=== PATIENT | female | born 1990 | race Caucasian/White ===

== ENCOUNTER 2024-08-29 11:36 | Emergency (ER) | payer OTHER, SELFPAY ==
--- OUTSIDE RECORDS SUMMARY | 2020-03-31 12:00 | XMS_ITS | Continuity of Care Document ---
Author Organization [facility] Address [address] [place] [address] Phone Care Team Providers Care Repairer Switchgear Name Role Phone Yasir KASHVijaya Unavailable Unavailable Allergies, Adverse Reactions, Alerts Substance Reaction Status Criticality No Known Allergies Active No Inform ation Medications Medication Instructions Dosage Effective Dates (start - stop) Status Comments No Drug Therapy Prescribed Problems Condition Type Effective Dates (start - stop) Clini rosendo Status Comments No Known Problems Procedures Procedure Date Nutrit Couns For Control Of Ross Dis Mar Resin Composite 3s; Posterior 0 Intraoral-periapical 1st Film 0 Bitewig-single Film Oral Hygiene Instruction Limited Oral Eval Panoramic Film Extract; Erupted Th/exposted Rt 020 Oral Hygiene Instruction OFFICE/OUTPATIENT VISIT, EST ROUTINE VENIPUNCTURE OFFICE/OUTPATIENT VISIT, EST SMEAR, WET MOUNT, SALINE/INK OFFICE/OUTPATIENT VISIT, [facility] SMEAR, WET MOUNT, SALINE/INK [facility] SPECIMEN HANDLING (GC/CHLAMYDIA) Jul OFFICE/OUTPATIENT VISIT, EST Azithromycin 250 mg [facility] SMEAR, WET MOUNT, SALINE/INK OFFICE/OUTPATIENT VISIT, NEW [facility] SPECIMEN HANDLING (GC/CHLAMYDIA) Feb SMEAR, WET MOUNT, SALINE/INK [facility] METRONIDAZOL 500 MG (14 TABLETS) Feb HIV-1 OFFICE/OUTPATIENT VISIT, EST OFFICE/OUTPATIENT VISIT, EST OFFICE/OUTPATIENT VISIT, EST EST OFFICE VISIT LEVEL 2 OFFICE/OUTPATIENT VISIT, EST EST OFFICE VISIT LEVEL 3 OFFICE/OUTPATIENT VISIT, EST OFFICE/OUTPATIENT VISIT, EST EST OFFICE VISIT LEVEL 3 OFFICE/OUTPATIENT VISIT, NEW NEW OFFICE VISIT LEVEL 3 URINALYSIS NONAUTO W/O SCOPE ROUTINE VENIPUNCTURE TB INTRADERMAL TEST OFFICE/OUTPATIENT VISIT, EST HEPB VACC PED/ADOL 3 DOSE IM TDAP VACCINE >7 IM TB INTRADERMAL TEST Advance Directives Directive Yes / No Effective Date File Name No Information Encounters Encounter Description Practice Location Reason(s) For Visit Diagnoses Date Provider Providers Copied on Encounter [facility], [address] [place] [address], [id number] , tel:[phone] Dental Clinic deepa (chief complaint) Encounter for screening for dental disorder 0 Yasir Lilly. [address] [place] [address], [id number], [place]. tel:[phone] [facility], [address] [place] [address], [id number] , [place] tel:[phone] Dental Clinic ER (chief complaint) Encounter for screening for dental disorders 0 Yasir Lilly. [address] [place] [address], [id number], [place]. tel:[phone] [facility], [address] [place] [address], [id number] , [place] tel: [phone] Dental Clinic dental limited (chief complaint) Encounter for screening for dental disorders Sep-2 202 0 Darryl SCHAFFER Shaun. [address] [place], [id number], [place]. tel:[phone] [facility], [address] [place], [place], [id number] , [place] tel: [phone] [facility] adipex #3 (chief complaint) Body mass index (BMI) 39.0-39.9, adultMorbid (severe) obesity due to excess calories Dec-0 5-201 7 Go Espino. [address] [place], [place], [id number], [place]. tel:[phone] [facility], [address] [place] [address], [id number] , tel: [phone] [facility] Body mass index (BMI) 39.0-39.9, adultMorbid (severe) obesity due to excess calories Nov-0 7-201 7 Go Espino. [address] [place], [place], [id number], [place]. tel:[phone] [facility], [address] [place] [address], [id number] , tel: [phone] [facility] Wt management (chief complaint) Body mass index (BMI) 39.0-39.9, adultMorbid (severe) obesity due to excess calories Oct-1 0-201 7 Go Espino. [address] [place], [place], [id number], [place]. [phone] OFFICE/OUTPA TIENT VISIT, EST [facility], [address] [place] [address], [id number] , [place] tel: [phone] [facility] review labs (chief complaint)a dipex (chief complaint) Obesity Fe- 1-201 5 Go Espino. [address] [place], [place], [id number], [place]. tel:[phone] [facility], [address] [place], [place], [id number] , [place] tel: [phone] [facility] lab draw (chief complaint) No Information b-0 - 5 Go Espino. [address] [place], [place], [id number], [place]. tel:[phone] OFFICE/OUTPA TIENT VISIT, [facility], [address] [place], [place], [id number] , [place] tel: [phone] [facility] adipex (chief complaint) Obesity 0 5 Go Espino. [address] [place], [place], [id number], [place]. tel:[phone] OFFICE/OUTPA TIENT VISIT, [facility], [address] [place], [place], [id number] , [place] tel: [phone] [facility] STI female (chief complaint) Trichomonal vulvovaginitisScr eening examination for venereal disease 0 4 Nicole Drew. [address] [place], [place], [id number], [place]. tel:[phone] OFFICE/OUTPA TIENT VISIT, [facility], [address] [place], [place], [id number] , [place] tel: [phone] [facility] No Information 3 Visci DO Bandar. [address] [place], [place], [id number], [place]. tel:[phone] [facility], [address] [place], [place], [id number] , [place] tel: [phone] [facility] Other nongonococcal urethritis, chlamydia trachomatis 3 Nicole Drew. [address] [place], [place], [id number], [place]. tel:[phone] OFFICE/OUTPA TIENT VISIT, [facility], [address] [place], [place], [id number] , [place] tel: [phone] [facility] STI female (chief complaint) Trichomonal vulvovaginitisScr eening examination for venereal disease 3 Nicole Drew. [address] [place], [place], [id number], [place]. tel:[phone] OFFICE/OUTPA TIENT VISIT, [facility], [address] [place], [place], [id number] , [place] tel: [phone] [facility] follow up (chief complaint) Elevated blood pressure reading without diagnosis of hypertensionObesi ty Jun- 3 Hemmer Kasandra. [address] [place], [place], [id number], [place]. OFFICE/OUTPA TIENT VISIT, [facility], [address] [place] [address], [id number] , [place] tel: [phone] [facility] weight management (chief complaint) Elevated blood pressure reading without diagnosis of hypertensionObesi ty 3 Hemmer Kasandra. [address] [place], [place], [id number], [place]. EST OFFICE VISIT LEVEL 2 [facility], [address] [place] [address], [id number] , [place] tel: [phone] [facility] weight loss therapy (chief complaint) Obesity 2 Hemmer Kasandra. [address] [place], [place], [id number], [place]. EST OFFICE VISIT LEVEL 3 [facility], [address] [place] [address], [id number] , [place] tel: [phone] [facility] weight loss (chief complaint) ObesityElevated blood pressure reading without diagnosis of hypertensionTobac co Abuse 2 Hemmer Kasandra. [address] [place], [place], [id number], [place]. OFFICE/OUTPA TIENT VISIT, [facility], [address] [place] [address], [id number] , [place] tel: [phone] [facility] lab follow up (chief complaint)E KG follow up (chief complaint) Abnormal weight gainElevated blood pressure reading without diagnosis of hypertension 2 Hemmer Kasandra. [address] [place], [place], [id number], [place]. OFFICE/OUTPA TIENT VISIT, [facility], [address] [place], [place], [id number] , [place] tel: [phone] [facility] Rapid Weight Gain (chief complaint) ObesityAbnormal weight gain 2 Hemkristan Slaughter. [address] [place], [place], [id number], [place]. [facility], [address] [place] [address], [id number] , [place] tel: [phone] [facility] No Information 9 Linda Hester. [address] [place], [place], [id number], [place]. tel:[phone] OFFICE/OUTPA TIENT VISIT, [facility], [address] [place], [place], [id number] , [place] tel: [phone] [facility] No Information 9 Visci DO Portillo. [address] [place], [place], [id number], [place]. tel:[phone] [facility], [address] [place] [address], [id number] , [place] tel: [phone] [facility] No Information 9 Viscconstantino Hester. [address] [place] [address], [id number], [place]. tel:[phone] Family History Family Member Type Diagnosis Age At Onset Mother Problem (finding) Alive and well Sister Problem (finding) seizure disorder Sister Problem (finding) Obesity Sister Problem (finding) hypertension Father Problem (finding) Alive and well Immunizations Vaccine Date Status Comments Influenza virus vaccine, injectable, quadrivalent, split virus, preservative free, 3 years or older Fluarix, Flulaval or Fluzone Quad refused Source: New Immun ization Record Payers Payer name Insurance type Covered republican ID Aisha stout(s) D Medicaid [facility] [id number] Medicaid [facility] [id number] Social History Type Description Quantity Date Captured Comments Alcohol Use Details beer & wine Caffeine Use Details coffee and energy drinks Tobacco Use Status Light cigarette smok er (1-9 cigs/day) Smoking Status Light tobacco smoker pt has seven tattoos Sex Female Sexual Orientation Straight or heterosexual Gender Identity Female Vital Signs Date / Time: Height Weight BMI Pulse Rate Blood Pressure Temperature Respiratory Rate Body Surface Area Head Circumference Head Circ. Percentile Wt./Aram. Percentile BMI percentile Pulse Ox Inhaled Ox 4:12 PM 67 /min 100/68 mm[Hg] 98.30 F Chief Complaint And Reason For Visit From encounter dated '03/31/2020 16:00'. deepa (chief complaint). Description: deepa Reason For Referral Reason For Referral No Information Plan Of Treatment Date Type Action Status Goal Influenza vaccine. Due on due Goal RLP. Due on due Goal Depression screening. Due on due Goal H&P. Due on due Goal CASHIER AND SALESPERSON exam. Due on due Goal Tdap. Due on due Goal PAP. Due on due Goal Tdap. Due on due Goal RLP. Due on due Goal PAP. Due on due Goal Depression screening. Due on due Goal CASHIER AND SALESPERSON exam. Due on due Goal H&P. Due on due Goal Influenza vaccine. Due on due Goal Depression screening. Due on due Goal CASHIER AND SALESPERSON exam. Due on due Goal Tdap. Due on due Goal PAP. Due on due Goal Influenza vaccine. Due on due Goal RLP. Due on due Goal H&P. Due on due Goal PAP. Due on due Goal H&P. Due on due Goal Tdap. Due on due Goal Urinalysis. Due on 12 due Goal RLP. Due on due Goal CASHIER AND SALESPERSON exam. Due on due Goal PPD (TST). Due on 9 due Goal Influenza vaccine. Due on due Goal Urinalysis. Due on 12 due Goal Influenza vaccine. Due on due Goal PPD (TST). Due on 9 due Goal RLP. Due on due Goal PAP. Due on due Goal H&P. Due on due Goal CASHIER AND SALESPERSON exam. Due on due Goal Tdap. Due on due Goal PAP. Due on due Goal H&P. Due on due Goal Urinalysis. Due on 12 due Goal PPD (TST). Due on 9 due Goal Influenza vaccine. Due on due Goal Tdap. Due on due Goal CASHIER AND SALESPERSON exam. Due on due Goal RLP. Due on due Goal H&P. Due on due Goal Tdap. Due on due Goal Urinalysis. Due on 12 due Goal Depression screening. Due on due Goal PAP. Due on due Goal CASHIER AND SALESPERSON exam. Due on due Goal PPD (TST). Due on 9 due Goal TD Vaccine. Due on 15 due Goal HPV (). Due on 5 due Goal H&P. Due on due Goal TD Vaccine. Due on 15 due Goal Depression screening. Due on due Goal Urinalysis. Due on 12 due Goal HPV (1st). Due on 5 due Goal PAP. Due on due Goal CASHIER AND SALESPERSON exam. Due on due Goal PPD (TST). Due on 9 due Goal Tdap. Due on due Goal Urinalysis. Due on 12 due Goal HPV (1st). Due on 5 due Goal TD Vaccine. Due on 15 due Goal CASHIER AND SALESPERSON exam. Due on due Goal H&P. Due on due Goal PAP. Due on due Goal PPD (TST). Due on 9 due Goal Depression screening. Due on due Goal Tdap. Due on due Goal Tobacco cessation counseling completed Goal Tobacco cessation counseling completed Goal Tobacco cessation counseling completed Goal Tobacco cessation counseling completed History Of Present Illness Encounter Date Complaint History Of Prese nt Illness deepa deepa ER dental limited dental limited, pt having pain in wisdom teeth adipex #3 Pt here for rx # 3 today, was off last month but did work a lot and was unable to exercise as much as she usually does. Preeti Wt management Pt here today fo r wt management. is not exercising or watching diet and just had her daughter a few months ago. Had 1 rx of adipex back in 2014 but no f/u. Preeti review labs adipex lab draw Client here to l abs obtained. Obtained from left antecubital on first attempt w/o difficulty. Raciel Urbina adipex Client desires A dipex. Raciel Urbina Functional Status Date Functional Assessmen t No Information Medications Administered Medication Instructions Dosage Effective Dates (start - stop) Status Comments No Drug Therapy Prescribed Instructions Date Instruction Additional Infor mation No Information Assessments Type Assessment Date assessment Encounter for screening for dent al disorder Patient Care Teams Name Effective Dates (start - stop) Status Members No Information
[2024-08-29 11:45] VITALS: BP 143/96; PULSE 100; TEMP 37; O2SAT 99; BMI 40.4
--- OUTSIDE RECORDS SUMMARY | 2024-08-29 11:45 | XMS_ITS | Patient Health Record ---
Author Organization [facility] es Address [address] [place] [address] Care Team Providers Care Filleter Name Role Phone Catherine Patel Primary Care Provider [phone] Stephan Irina Unavailable [phone] Coco Hernandez Unavailable [phone] Allergies No Known Allergies Reason For Referral No Information Medications Medication SIG (Take, Route, Frequency, Duration) Notes Start Date End Date Status Bactrim DS 800-160 MG 1 tablet Orally Tw ice a day for 10 day(s) Not-Taking Pseudoephedrine HCl 30 MG 1 tablet Orall y Q12 hour for 5 days 01/14/2021 Active Social History Tobacco Use: Social History Observation Description Date Details (start date - stop date) Never Smoker NA - NA Tobacco Screen: Question Answer Notes Are you a: never smoker Sexual Hx: Question Answer Notes Had sex in the last 12 months (vaginal, oral, or anal)? Yes with Men only Use protection? No Prevention Strategies discussed: Other Have you ever had an STD? Yes Other? Yes LMP: before Alcohol Screening: Question Answer Notes Did you have a drink contain ing alcohol in the past year? Yes How often did you have a dri nk containing alcohol in the past year? Monthly or less (1 point) How many drinks did you have on a typical day when you were drinking in the past year? 1 or 2 (0 points) How often did you have six o r more drinks on one occasion in the past year? Less than monthly (1 point) Points 2 Interpretation Negative Depression Screening (PHQ-2): Question Answer Notes Little interest or pleasure in doing things Yes Feeling down depressed or hopeless Yes Depression Screening (PHQ-9): Question Answer Notes Little interest or pleasure in doing things Elaine ral days Feeling down, depressed, or hopeless Not at all Trouble falling or staying asleep, or sleeping t oo much Nearly every day Feeling tired or having little energy Nearly jeannie ry day Poor appetite or overeating Nearly every day Feeling bad about yourself-o r that you are a failure or have let yourself or your family down Not at all Trouble concentrating on thi ngs, such as reading the newspaper or watching television Not at all Moving or speaking so slowly that other people could have noticed. Or the opposite being so fidgety or restless that you have been moving around a lot more than usual Several days Thoughts that you would be b lidya off , or of hurting yourself in some way Not at all Total Score 11 Intepretation Moderate Depression Problems Problem Type SNOMED Code ICD Code Onset Dates Problem Status W/U Status Risk Notes Problem 24156434 Post depression (F53) Active confirmed Problem [id number] Plantar fasciitis, bilateral (M72.2) Active confirmed Problem 820322174 Obesity (BMI 35.0-39.9 without comorbidity) (E66.9) Active confirmed Encounters Encounter Location Date Provider Diagnosis [facility] [place] Services [address] [place] [address] 12/26/2023 Coco Hernandez Encounter for dental examination and cleaning with abnormal findings Z01.21 ; Other dental procedure status Z98.818 ; Disturbances in tooth eruption K00.6 ; Acute gingivitis, plaque induced K05.00 and Dental caries on pit and fissure surface penetrating into dentin K02.52 [facility] [place] [address] [place] [address] 12/28/2023 Irina Rothman Acute gingivitis, plaque induced K05.00 [facility] [place] [address] [place] [address] 06/27/2024 Irina Rothman Acute gingivitis, plaque induced K05.00 [facility] [place] [address] [place] [address] 12/27/2023 Coco Hernandez Dental caries on pit and fissure surface penetrating into dentin K02.52 Assessments Encounter Date Diagnosis (ICD Code) Assessment Notes Treatment Notes Treatment Clinical Notes Section Notes 12/26/2023 Encounter for dental examination and cleaning with abnormal findings (ICD-10 - Z01.21) 12/27/2023 Dental caries on pit and fissure surface penetrating into dentin (ICD-10 - K02.52) 12/28/2023 Acute gingivitis, plaque induced (ICD-10 - K05.00) 06/27/2024 Acute gingivitis, plaque induced (ICD-10 - K05.00) 12/26/2023 Other dental procedure status (ICD-10 - Z98.818) 12/26/2023 Disturbances in tooth eruption (ICD-10 - K00.6) 12/26/2023 Acute gingivitis, plaque induced (ICD-10 - K05.00) 12/26/2023 Dental caries on pit and fissure surface penetrating into dentin (ICD-10 - K02.52) Plan Of Treatment Next Appt Details Provider Name:Irina Rothman , 01/07/2025 03:20:00 PM, [address], [place], [address], Insurance Providers Payer Name Payer Address Payer Phone Subscriber Number Group Number Insured Name Patient Relationship to Insured Coverage Start Date Coverage End Date MEDICAL [facility] HEMAL [address] [place] [address] [id number] SREEDHAR PULIDO Self - patient is the insured [facility]. [address] [place] [address] [id number] SREEDHAR PULIDO Self - patient is the insured 9 [id number] D [facility] [address] [place] [address] [id number] SREEDHAR PULIDO Self - patient is the insured 9 [facility] [address] [place] [address] [id number] SREEDHAR PULIDO Self - patient is the insured 4 Medical (General) History Hospitalization History Reason Date(Month/Year) Child
--- OUTSIDE RECORDS SUMMARY | 2024-08-29 11:45 | XMS_ITS | Encounter Summary ---
Author Organization [facility] Address [address] [place] [address] Care Team Providers Care Brewery Technician Name Role Phone Unallocated, Noms Provider Primary Care Provi christie Emeli Somers POULTRY GRADER Unavailable [phone] Ethel Guillen DO Unavailable [phone] Luna Smyth POULTRY GRADER Unavailable Blake Andrade DO Primary Care Provider [phone] Criselda Hoff DO Unavailable [phone] Encounter Details Date Type Department Care Team (Late st Contact Info) Description 03/21/2023 Abstract [facility] [address] [facility] [address] [place] [id number] Lizzie Godinez, DO [address] [facility] [address] [place] [address] Social History Tobacco Use Types Packs/Day Years Used Date Smoking Tobacco: Former Cigarettes 0.5 5 1 04/10/2016 - 02/08/2022 Smokeless Tobacco: Never Alcohol Use Standard Drinks/Week Comments Yes 0 (1 standard drink = 0.6 oz pure alcohol) not with , Caffeine intake: 1-2 cups per day coffee AUDIT-C Answer Date Recorded Q1: How often do you have a drink containing alc ohol? 2-4 times a month 02/09/2023 Q2: How many drinks containi ng alcohol do you have on a typical day when you are drinking? 1 or 2 02/09/2023 Q3: How often do you have si x or more drinks on one occasion? Never 02/09/2023 Education Answer Date Recorded What is the highest level of school you have completed or the highest degree you have received? 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 No / Unsure 03/16/2023 8:44 AM EST documented as of this encounter Plan of Treatment Upcoming Encounters Date Type Department Care Team (Late st Contact Info) Description 11/15/2024 11:30 AM EDT Office Visit [facility] [address] [place] [address] Lizzie Godinez E, DO [address] [place] [address] 06/11/2025 3:40 PM EST Office Visit [facility] [address] [place] [address] Luna Smyth, POULTRY GRADER [address] [place], [place] [id number] documented as of this encounter Visit Diagnoses Not on filedocumented in this encounter Care Teams Brewery Technician Relationship Specialty Start Date End Date Unallocated, [facility] [place], [address] [place] [address] PCP - General 09/19/22 05/18/23 Emeli Somers NP [address] [place] [address] PCP - Medical [facility] [employer] 09/08/22 04/20/23 Joe-Ethel Zelaya DO [address] [place] [address] PCP - [facility] 10/08/22 Blake Andrade DO [address] [place] [address] PCP - General Family Medicine 05/19/23 Criselda Hoff DO [address] [place] [address] PCP - Medical [employer] 04/21/23 04/09/99 Luna Smyth NP [address] [place] [address] Nurse Practitioner Family Medicine 05/19/23 documented as of this encounter
--- OUTSIDE RECORDS SUMMARY | 2024-08-29 11:45 | XMS_ITS | Clinical Summary ---
Author Organization [facility] Address [address] [place] [address] Care Team Providers Care Electrician Elevator Maintenance Name Role Phone EmeritaLuna monroe Suresh PHOTOGRAPHIC ENGINEER Unavailable Blake Andrade DO Primary Care Provider [phone] Criselda Hoff DO Unavailable [phone] Allergies No known active allergies Medications No known medications Active Problems Problem Noted Date Diagnosed Date Status post bilateral salpingectomy 05/19/2023 Resolved Problems Problem Noted Date Diagnosed Date Resolved Date Gestational diabetes mellitu s (GDM) in third trimester 02/08/2023 05/19/2023 Assessment & Plan (02/08/2023 8:01 PM EDT): Discussed risks and benefits of gestational diabetes. Discussed lifestyle modifcations at length. Given meter and instructed on its use. BG goals of fasting < 95, 1 hr < 140, and 2 hr < 120. Pt is to send me readings in one week for review. Pt is to call with any problems. Care plan was discussed and a copy of this was given to the patient along with current A1c, blood pressure, diabetes medications. Discussed risk of developing type 2 diabetes in the future and the recommendation to get a 2 hr GTT 6 weeks after delivery. Will follow up as needed. Her fasting readings are a little higher than I would like but I would like to give her a week to make dietary changes to see if this helps before putting her on medications. Encounters Date Type Department Care Team Description 06/18/2024 Telephone [facility] [address] [facility] [address] [place] [phone] Tara Soriano MA Results 06/10/2024 3:40 PM EST Office Visit [facility] [address] [place] [phone] Luna Smyth NP Well adult exam (Primary Dx); Impaired fasting glucose; Family history of hypothyroidism 06/10/2024 Bamboo flowsheet [facility] [address] [place] [phone] Luna Smyth NP 06/10/2024 Travel from Last 3 Months Immunizations Immunization Administration Dates Next Due DTP 06/16/1992,01/17/1991,1990 DTaP, Unspecified 08/31/1995,01/06/1993 Hep B, Adolescent or Pediatric 01/21/2009,2000 HiB, unspecified 06/16/1992,01/17/1991, 1 MMR 08/31/1995,06/16/1992 OPV 08/31/1995,06/16/1992,01/17/1991 ,1990 Tdap 03/22/2023,01/21/2009 Family History Medical History Relation Name Comments No Known Problems Daughter Cancer Father Bandar avila Diabetes Father Bandar avila Hypertension Father Bandar avila Stroke Father Bandar avila Lung cancer Maternal Grandfather Breast cancer Maternal Grandmother Val renae Cancer Maternal Grandmother Val renae Rheum arthritis Mother Mi russell Thyroid disease Mother Mi russell Asthma Nephew Cancer Paternal Grandfather No Known Problems Paternal Grandmother No Known Problems Sister Relation Name Status Comments Daughter 1, healthy Father Bandar vaila Alive Maternal Grandfather Maternal Grandmother Val renae Mother Mi russell Alive Nephew Paternal Grandfather Paternal Grandmother Sister 2, healthy Social History Tobacco Use Types Packs/Day Years Used Date Smoking Tobacco: Former Cigarettes 0.5 8.1 0 01/07/2014 - 02/08/2022 Smokeless Tobacco: Never Tobacco Cessation:Counseling Given: Yes Alcohol Use Standard Drinks/Week Comments Yes 0 (1 standard drink = 0.6 oz pure alcohol) Caffeine intake: 1-2 cups per day coffee Humiliation, Afraid, Rape, and Kick questionnair e Answer Date Recorded Within the last year, have y ou been afraid of your partner or ex-partner? No 05/16/2023 Within the last year, have y ou been humiliated or emotionally abused in other ways by your partner or ex-partner? No Within the last year, have y ou been kicked, hit, slapped, or otherwise physically hurt by your partner or ex-partner? No 05/16/2023 Within the last year, have y ou been raped or forced to have any kind of sexual activity by your partner or ex-partner? No 05/16/2023 Social Connection and Isolation Panel [NHANES] A nswer Date Recorded In a typical week, how many times do you talk on the phone with family, friends, or neighbors? Three times a week 05/16/19 How often do you get togethe r with friends or relatives? Once a week 05/16/2023 How often do you attend chur or roman catholic services? Never 05/16/2023 Do you belong to any clubs o r organizations such as oriental orthodox groups, unions, fraternal or athletic groups, or school groups? No 05/16/2023 How often do you attend meet ings of the clubs or organizations you belong to? Never 05/16/2023 Are you , , di vorced, , never , or living with a partner? Living with partner 05/16/2023 AUDIT-C Answer Date Recorded Q1: How often do you have a drink containing alc ohol? 2-4 times a month 05/16/2023 Q2: How many drinks containi ng alcohol do you have on a typical day when you are drinking? 5 or 6 05/16/2023 Q3: How often do you have si x or more drinks on one occasion? Monthly 05/16/2023 Overall Financial Resource Strain (CARDIA) Answe r Date Recorded How hard is it for you to pa y for the very basics like food, housing, medical care, and heating? Somewhat hard 05/16/2023 PHQ-2 Answer Date Recorded Patient Health Questionnaire-2 Score 0 06/10/2024 [facility] Occupational Stress Questionnaire Answer Date Recorded Do you feel stress - tense, restless, nervous, or anxious, or unable to sleep at night because your mind is troubled all the time - these days? Not at all 05/16/2023 Exercise Vital Sign Answer Date Recorde d On average, how many days pe r week do you engage in moderate to strenuous exercise (like a brisk walk)? 7 days 05/16/2023 On average, how many minutes do you engage in exercise at this level? 60 min 05/16/2023 Hunger Vital Sign Answer Date Recorded Within the past 12 months, y ou worried that your food would run out before you got the money to buy more. Never true 05/16/19 24 Within the past 12 months, t he food you bought just didn't last and you didn't have money to get more. Never true 05/16/2023 PRAPARE - Transportation Answer Date Re corded In the past 12 months, has l ack of transportation kept you from medical appointments or from getting medications? No 09/2023 In the past 12 months, has l ack of transportation kept you from meetings, work, or from getting things needed for daily living? No 05/16/2023 Housing Stability Vital Sign Answer Stefan e Recorded In the last 12 months, was t here a time when you were not able to pay the mortgage or rent on time? No 05/16/2023 In the last 12 months, how many places have you lived? 1 05/16/2023 In the last 12 months, was t here a time when you did not have a steady place to sleep or slept in a mcfp (including now)? No 05/16/2023 Education Answer Date Recorded What is the highest level of school you have completed or the highest degree you have received? 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 Not on file Not on file Last Filed Vital Signs Vital Sign Reading Time Taken Comments Blood Pressure 124/76 06/10/2024 3:45 PM EST Pulse 68 06/10/2024 3:45 PM EST Temperature 36.9 C (98.4 F) 06/10/2024 3:45 PM EST Respiratory Rate - - Oxygen Saturation 97% 06/10/2024 3:45 PM EST Inhaled Oxygen Concentration - - Weight 110 kg (243 lb) 06/10/2024 3:45 PM EST Height 170.2 cm (5' 7 ) 06/10/2024 3:45 PM EST Body Mass Index 38.06 06/10/2024 3:45 PM EST Plan of Treatment Upcoming Encounters Date Type Department Care Team (Late st Contact Info) Description 11/15/2024 11:30 AM EDT Office Visit [facility] OB [address] [place] [address] Lizzie Godinez, DO [address] [place] [address] 06/11/2025 3:40 PM EST Office Visit [facility] [address] [place] [phone] Luna Smyth, PHOTOGRAPHIC ENGINEER [address] [place] [address] Health Maintenance Due Date Last Done Comments Pap Smear 2011 Influenza Vaccine (Season Ended) 2024 Cervical Cancer Screening 10/24/2028 HPV/Cotest 10/24/2028 10/25/2023, 10/08, 04/01/2021, Additional history exists Procedures Procedure Name Priority Date/Time Associated Diagnosis Comments HEMOGLOBIN A1C WITH EAG Routine 06/15/2024 7:25 AM EST Well adult exam Impaired fasting glucose Family history of hypothyroidism LIPID PANEL Routine 06/15/2024 7:25 AM EST Well adult exam Impaired fasting glucose Family history of hypothyroidism COMPREHENSIVE METABOLIC PANEL Routine 06/15/2024 7:25 AM EST Well adult exam Impaired fasting glucose Family history of hypothyroidism T4, FREE Routine 06/15/2024 7:25 AM EST Well adult exam Impaired fasting glucose Family history of hypothyroidism TSH Routine 06/15/2024 7:25 AM EST Well adult exam Impaired fasting glucose Family history of hypothyroidism HEMOGRAM [place] Routine 06/15/2024 7:25 AM EST Well adult exam Impaired fasting glucose Family history of hypothyroidism THINPREP IMAGING PAP W/REFL HPV MRNA E6/E7 Routine 10/25/2023 2:25 PM EDT Screening for malignant neoplasm of cervix from Last 3 Months or Most Recently Relevant to Health Maintenance Results * HEMOGRAM CBC WITHOUT DIFF [place] (06/15/2024 7:25 AM EST) WBC 4.5 3.8 - 11.6 10*3/uL 06/15/2024 9:20 AM [facility] RBC 4.52 3.60 - 5.00 10*6/uL 06/15/2024 9:20 AM [facility] HEMOGLOBIN 13.4 11.8 - 15.4 g/dL 06/15/2024 9:20 AM [facility] HEMATOCRIT 38.8 34.0 - 46.4 % 06/15/2024 9:20 AM [facility] MCV 85.8 80 - 100 fL 06/15/2024 9:20 AM [facility] MCH 29.5 24.7 - 34.3 pg 06/15/2024 9:20 AM [facility] MCHC 34.4 32.0 - 35.0 g/dL 06/15/2024 9:20 AM [facility] RED CELL DISTRIBUTION WIDTH, RDW 13.6 11.9 - 15.3 % 06/15/2024 9:20 AM [facility] PLATELET COUNT 218 150 - 450 10*3/uL 06/15/2024 9:20 AM [facility] MEAN PLATELET VOLUME, MPV 9.1 6.3 - 10.7 fL 06/15/2024 9:20 AM [facility] Blood (Blood) 06/15/2024 7:2 5 AM EST 06/15/2024 7:25 AM EST us Luna Smyth PHOTOGRAPHIC ENGINEER LAB BLOOD ORDERABLES Final Resul t Performing Organization Address [facility] Co de Phone Number [address] [place] [address], [facility] [address] [place] [address] * (ABNORMAL) Hemoglobin a1c with eag (06/15/2024 7:25 AM EST) HEMOGLOBIN A1C 5.7(H) 4.3 - 5.6 % 06/15/2024 11:43 AM EST [facility] Comment: Increased risk for diabetes: 5.7 - 6.4 diabetes: >6.4 glycemic control for adults with diabetes: <7.0 ESTIMATED AVERAGE GLUCOSE 117 mg/dL 06/15/2024 11:43 AM EST [facility] Blood (Blood) 06/15/2024 7:2 5 AM EST 06/15/2024 7:25 AM EST us Luna Smyth NP LAB BLOOD ORDERABLES Final Resul t Performing Organization Address [facility] Co de Phone Number [address] [place] [address], [facility] [address] [place] [address] * TSH (06/15/2024 7:25 AM EST) THYROID STIMULATING HORMONE 2.01 0.45 - 5.33 u[iU]/mL 06/15/2024 9:54 AM EST [facility] Other Topography unknown / Unknown 06/15/2024 7:25 AM EST 06/15/2024 7:25 AM EST Luna Smyth PHOTOGRAPHIC ENGINEER LAB BLOOD ORDERABLES Final Resul t Performing Organization Address City/[facility] Co de Phone Number [address] [address], [address] [address] * T4, free (06/15/2024 7:25 AM EST) FREE T4 (FREE THYROXINE) 0.77 0.61 - 1.12 ng/dL 06/15/2024 9:56 AM [facility] Other Topography unknown / Unknown 06/15/2024 7:25 AM EST 06/15/2024 7:25 AM EST Luna Smyth PHOTOGRAPHIC ENGINEER LAB BLOOD ORDERABLES Final Resul t [facility] [address] [place] [address], [facility] [address] [place] [id number] * (ABNORMAL) Lipid panel (06/15/2024 7:25 AM EST) CHOLESTEROL 173 140 - 200 mg/dL 06/15/2024 9:38 AM [facility] Comment: Chol less than 200 mg/dl low risk Chol 201-239 mg/dl borderline risk Chol 240 mg/dl and greater high risk HDL CHOLESTEROL 46 23 - 92 mg/dL 06/15/2024 9:38 AM [facility] Comment: HDL CHOL ATP-III CLASSIFICATION Cardiovascular Risk HDL > or equal to 60 mg/dL LOW HDL < 40 mg/dL HIGH TRIGLYCERIDE W/REFLEX 122 0 - 149 mg/dL 06/15/2024 9:38 AM [facility] Comment: TRIG ATP III CLASSIFICATION TRIG less than 150 mg/dL Normal TRIG 150-199 mg/dL Borderline high TRIG 200-500 mg/dL High TRIG greater than 500 mg/dL Very high Standard traceable to the Center for Disease Conrtrol and Prevention (CDC) test method. LDL CHOLESTEROL,CALCULA PANTERA 103(H) 0 - 100 mg/dL 06/15/2024 9:38 AM [facility] Comment: LDL ATP III CLASSIFICATION LDL less than 100 mg/dL Optimal LDL 100-129 mg/dL Near or above optimal LDL 130-159 mg/dL Borderline high LDL 160-189 mg/dL High LDL greater than 189 mg/dL Very high VLDL CHOLESTEROL 24 mg/dL 06/16/19 9:38 AM [facility] CHOL/HDL RATIO 3.8 <5.0 06/15/2024 9:38 AM [facility] Other Topography unknown / Unknown 06/15/2024 7:25 AM EST 06/15/2024 7:25 AM EST us Luna Smyth NP LAB BLOOD ORDERABLES Final Resul t [facility] [address] [place] [address], [facility] [address] [place] [address] * (ABNORMAL) Comprehensive metabolic panel (06/15/2024 7:25 AM EST) Glucose 105(H) 70 - 100 mg/dL 06/15/2024 9:38 AM [facility] Comment: Random Glucose Reference Range is dependent on time and content of last meal. Glucose of more than 200 mg/dL in a nonstressed, ambulatory subject supports the diagnosis of Diabetes Mellitus. ADA recommended reference range BUN 20 7 - 25 mg/dL 06/15/2024 9:38 AM [facility] CREATININE 0.73 0.60 - 1.20 mg/dL 06/15/2024 9:38 AM [facility] ESTIMATED GFR >60.0 mL/Min 06/15/2024 9:38 AM [facility] Sodium 138 136 - 145 mmol/L 06/15/2024 9:38 AM [facility] Potassium, Bld 4.5 3.5 - 5.1 mmol/L 06/15/2024 9:38 AM [facility] Chloride 106 98 - 107 mmol/L 06/15/2024 9:38 AM [facility] Carbon Dioxide 25.8 21.0 - 31.0 mmol/L 06/15/2024 9:38 AM [facility] Anion Gap 10.7 6.0 - 15.0 meq/L 06/15/2024 9:38 AM [facility] Calcium 9.0 8.6 - 10.3 mg/dL 06/15/2024 9:38 AM [facility] TOTAL PROTEIN 7.0 6.4 - 8.9 g/dL 06/15/2024 9:38 AM [facility] ALBUMIN LEVEL 4.3 3.5 - 5.7 g/dL 06/15/2024 9:38 AM [facility] GLOBULIN 2.7 g/dL 06/15/2024 9:38 AM [facility] ALBUMIN/GLOBULIN RATIO 1.6 06/15/2024 9:38 AM [facility] BILIRUBIN,TOTAL 0.6 0.3 - 1.0 mg/dL 06/15/2024 9:38 AM [facility] ASPARTATE AMINO TRANSFERASE 12(L) 13 - 39 U/L 06/15/2024 9:38 AM [facility] ALANINE AMINOTRANSFERASE 6(L) 7 - 52 U/L 06/15/2024 9:38 AM [facility] ALKALINE PHOSPHATASE 78 34 - 104 U/L 06/15/2024 9:38 AM [facility] Other Topography unknown / Unknown 06/15/2024 7:25 AM EST 06/15/2024 7:25 AM EST us Luna Smyth PHOTOGRAPHIC ENGINEER LAB BLOOD ORDERABLES Final Resul t Performing Organization Address City/State/[facility] Co de Phone Number [facility] [address] [place] [address], [facility] [address] [place] [address] * THINPREP IMAGING PAP W/REFL HPV MRNA E6/E7 (10/25/2023 2:25 PM EDT) CLINICAL INFORMATION [facility] Comment:APOHR,APOHRNG LMP [facility] Comment:NONE GIVEN PREV. PAP [facility] Comment:NONE GIVEN PREV. BX [facility] Comment:NONE GIVEN SOURCE [facility] Comment:Cervix STATEMENT OF ADEQUACY [facility] Comment: Satisfactory for evaluation. Endocervical/transformation zone component present. INTERPRETATION/RESUL T [facility] Comment: Cytology Results: Negative for intraepithelial lesion or malignancy. COMMENT [facility] Comment: This Pap test has been evaluated with computer assisted technology. POLISHING MACHINE TENDER [facility] Comment: LXT, CT(ASCP) CT screening location: [facility], [address] [place] [address], [place] [address]. (ALWAYS MESSAGE) [facility] Comment: EXPLANATORY NOTE: The Pap is a screening test for cervical cancer. It is not a diagnostic test and is subject to false negative and false positive results. It is most reliable when a satisfactory sample, regularly obtained, is submitted with relevant clinical findings and history, and when the Pap result is evaluated along with historic and current clinical information. Swab Cervix uteri structure / Unknown 10/25/2023 2:25 PM EDT 10/26/2023 3:26 AM EDT Narrative Resulting Agency Comment Performing Organization Information Site ID: [id number] Name: [facility] Address: [address] [place] [address] Director: Chai Silva MD Lizzie Godinez DO LAB CYTOLOGY ORDERABLES Fin al Result [facility] from Last 3 Months or Most Recently Relevant to Health Maintenance Insurance [employer] Care Teams Electrician Elevator Maintenance Relationship Specialty Start Date End Date Blake Andrade DO [address] [place] [address] PCP - General Family Medicine 05/19/23 Criselda Hoff DO [address] [place] [address] PCP - Medical [employer] 04/21/23 04/09/99 Luna Smyth NP [address] [facility] [address] [place] [id number] Nurse Practitioner Family Medicine 05/19/23
--- OUTSIDE RECORDS SUMMARY | 2024-08-29 11:45 | XMS_ITS | Clinical Summary ---
Author Organization [facility] Address [address] [place] [address] Care Team Providers Care Night Coordinator Name Role Phone Unavailable Primary Care Provider Unavailabl e Medications No known medications Active Problems Problem Noted Date Diagnosed Date BMI 36.0-36.9,adult 09/12/2016 Tobacco smoking complicating in third trimester 09/12/2016 Social History Tobacco Use Types Packs/Day Years Used Date Smoking Tobacco: Never Assessed Comments Unknown Sex and Gender Information Value Date Recorded Sex Assigned at Not on file Legal Sex Female 2:03 PM EDT Gender Identity Not on file Sexual Orientation Not on file Last Filed Vital Signs Vital Sign Reading Time Taken Comments Blood Pressure - - Pulse - - Temperature - - Respiratory Rate - - Oxygen Saturation - - Inhaled Oxygen Concentration - - Weight 111.3 kg (245 lb 6.4 oz) 10/31/2016 2:05 PM EDT Height 170.2 cm (5' 7 ) 10/31/2016 2:05 PM EDT Body Mass Index 38.44 10/31/2016 2:05 PM EDT Plan of Treatment Health Maintenance Due Date Last Done Comments Anxiety Screening 2008 Depression Screening 2008 HIV Screening 2008 Hepatitis C Screening 2008 DTaP,Tdap,Td Vaccine (1 - Tdap) 2009 Hepatitis B Vaccine (1 of 3 - 19+ 3-dose series) 05/18 Cervical Cancer Screening 2011 Covid-19 Vaccine ( - 2023- season) 2023 Influenza Vaccine (Season Ended) 2024 Insurance BLUE CARD PPO OOS Member Subscriber Plan / Payer (Ef fective 2015-Present) Name:Marcelo Faustis Relation to Subscriber:Self Name:Ayo Faust Payer ID:[id number] (NAIC) Type:[facility] Address: [address] MEDICAID
--- OUTSIDE RECORDS SUMMARY | 2024-08-29 11:45 | XMS_ITS | Encounter Summary ---
Author Organization [facility] Address [address] [place] [address] Care Team Providers Care Kitchen Food Assembler Name Role Phone Unallocated, [facility] Provider Primary Care Provi chrisite Emeli Somers PERSONNEL CONSULTANT Unavailable Ethel Guillen DO Unavailable [phone] Luna Smyth PERSONNEL CONSULTANT Unavailable Blake Andrade DO Primary Care Provider Criselda Hoff DO Unavailable [phone] Encounter Details Date Type Department Care Team (Late st Contact Info) Description 03/21/2023 Abstract [facility] [address] [facility] [address] [place] [phone] Lizzie Godinez, DO [address] [facility] [address] [place] [address] Social History Tobacco Use Types [...] 11/15/2024 11:30 AM EDT Office Visit [facility] OB [address] [place] [address] Lizzie Godinez E, DO [address] [place] [address] 06/11/2025 3:40 PM EST Office Visit [facility] FM [address] [place] [address] Luna Smyth, PERSONNEL CONSULTANT [address] [place], [place] [phone] documented as of this encounter Visit Diagnoses Not on filedocumented in this encounter Care Teams Kitchen Food Assembler Relationship Specialty Start Date End Date Unallocated, [facility] [place], [address] [place] [address] PCP - General 09/19/22 05/18/23 Emeli Somers NP [address] [place] [address] PCP - Medical [place] [employer] 09/08/22 04/20/23 Joe-Ethel Zelaya DO [address] [place] [address] PCP - [facility] 10/08/22 Blake Andrade DO [address] [place] [address] PCP - General Family Medicine 05/19/23 Criselda Hoff DO [address] [place] [address] PCP - Medical [place] [employer] 04/21/23 04/09/99 Luna Smyth NP [address] [place] [address] Nurse Practitioner Family Medicine 05/19/23 documented as of this encounter
--- OUTSIDE RECORDS SUMMARY | 2024-08-29 11:45 | XMS_ITS | Encounter Summary ---
Author Organization [facility] Address [address] [place] [address] Care Team Providers Care Teacher Aide Name Role Phone Unallocated, Noms Provider Primary Care Provi christie Emeli Somers [employer] Unavailable [phone] Ethel Guillen DO Unavailable [phone] Luna Smyth [employer] Unavailable Blake Andrade DO Primary Care Provider Criselda Hoff DO Unavailable [phone] Encounter Details Date Type Department Care Team (Late st Contact Info) Description 10/17/2022 Abstract [facility] [address] [facility] [address] [place] [id number] Lizzie Godinez, DO [address] [facility] [address] [place] [address] Social History Tobacco Use Types Packs/Day Years Used Date Smoking Tobacco: Former Cigarettes 0.5 5 1 04/10/2016 - 02/08/2022 Smokeless Tobacco: Never Tobacco Cessation:Counseling Given: Not Answered Alcohol Use Standard Drinks/Week Comments Yes 0 (1 standard drink = 0.6 oz pure alcohol) not with , Caffeine intake: 1-2 cups per day coffee Education Answer Date Recorded What is the [...] suspected to have Coronavirus/COVID-19? No / Unsure 10/18/2022 10:44 AM EDT documented as of this encounter Plan of Treatment Upcoming Encounters Date Type Department Care Team (Late st Contact Info) Description 11/15/2024 11:30 AM EDT Office Visit [facility] [address] [place] [address] Lizzie Godinez, DO [address] [place] [address] 06/11/2025 3:40 PM EST Office Visit [facility] [address] [place] [address] Luna Smyth, [employer] [address] [place] [address] documented as of this encounter Visit Diagnoses Not on filedocumented in this encounter Care Teams Teacher Aide Relationship Specialty Start Date End Date Unallocated, Noms Provider, [address] [facility] [place] [address] PCP - General 09/19/22 05/18/23 Emeli Somers NP [address] [place] [address] PCP - Medical [employer] 09/08/22 04/20/23 Ethel Guillen DO [address] [place] [address] PCP - [facility] 10/08/22 Blake Andrade, DO [address] [place] [address] PCP - General Family Medicine 05/19/23 Criselda Hoff DO [address] [place] [address] PCP - Medical [employer] 04/21/23 04/09/99 Luna Smyth NP [address] [place] [address] Nurse Practitioner Family Medicine 05/19/23 documented as of this encounter
--- NOTE | 2024-08-29 11:51 | US_ITS ---
The [address] [address] Patient Name: SREEDHAR JOSEPH MRN: [id number] date: 1990 Sex: F Assigned Patient Location: ED.MAIN Current Patient Location: ED.MAIN Accession/Order Number: [id number] Exam Date: 08/29/2024 12:34 Report Date: 08/29/2024 12:36 At the request of: HUNTER ROBERTS MD Procedure: US right upper quadrant LIMITED RIGHT UPPER QUADRANT ABDOMINAL ULTRASOUND CLINICAL HISTORY: Right upper quadrant pain for the past 2 weeks COMPARISON: None The gallbladder is physiologically distended without shadowing calculi, wall thickening or pericholecystic fluid. No intra- or extrahepatic biliary dilatation is evident. The common duct measures 4 - 5 mm. No intrahepatic masses were imaged. There is appropriate hepatopetal flow within the main portal vein. The pancreas shows no significant sonographic abnormality. Cursory evaluation of the right kidney reveals no hydronephrosis or fluid within Echevarria's pouch. US/US right upper quadrant IMPRESSION: NO ACUTE RIGHT UPPER QUADRANT FINDINGS. Impression dictated by: Kasandra Tai M.D. 08/29/2024 12:36 PM Dictation Location: [place] [address] Electronically authenticated by: [id number] Y Date: 08/29/2024 12:36
--- NOTE | 2024-08-29 11:52 | ED.GENADUL1 ---
HPI HPI - General Adult General Chief complaint: Abdominal Pain Stated complaint: ACID REFLUX ABDOMINAL PAIN Time Seen by Provider: 08/29/24 11:41 Mode of arrival: walk-in History of Present Illness HPI narrative: 34-year-old female presents to the emergency department for right upper quadrant and epigastric pain. It is worse after she eats and she has been having this for the last week. She has never had issues like this before. No trauma or fever. No lower abdominal pain or back pain or chest pain. Related Data Previous Rx's ?Medication ?Instructions ?Recorded esomeprazole magnesium 20 mg 20 mg PO DAILY #20 caps 08/29/24 capsule,delayed release (Nexium) Allergies Allergy/AdvReac Type Severity Reaction Status Date / Time No Known Drug Allergies Allergy Verified 08/29/24 11:44 Review of Systems ROS Narrative A ten point review of systems is negative except as noted above. PFSH PFSH Social History Little interest or pleasure in doing things: not at all Feeling down, depressed, or hopeless: not at all Exam Narrative Exam Narrative: Nurses note and vital signs reviewed and patient is not hypoxic. General: The patient appears in no apparent distress. Patient is resting comfortably on cart. Skin: Warm, dry, no pallor noted. There is no rash noted. Head: Normocephalic, atraumatic Eye: Normal conjunctiva, no drainage Ears, Nose, Mouth, and Throat: oral mucosa is moist. Nares patent. Cardiovascular: Regular Rate and Rhythm Respiratory: Patient is in no distress, no accessory muscle use, lungs are clear to auscultation, no wheezing, rales or rhonchi Back: non-tender GI: Soft and nondistended. Tenderness in the epigastric area and right upper quadrant Musculoskeletal: The patient has no evidence of calf tenderness, no pitting edema, symmetrical pulses noted bilaterally Neurological: A&O, normal speech Psychiatric: Cooperative Constitutional Vital Signs, click to edit/add: Last Vital Signs Temp 98.6 F 08/29/24 11:45 Pulse 100 H 08/29/24 11:45 Resp 20 08/29/24 11:45 BP 143/96 H 08/29/24 11:45 Pulse Ox 99 08/29/24 11:45 O2 Del Method Room Air 08/29/24 11:45 Course Vital Signs Vital signs: Vital Signs Temperature 98.6 F 08/29/24 11:45 Pulse Rate 100 H 08/29/24 11:45 Respiratory Rate 20 08/29/24 11:45 Blood Pressure 143/96 H 08/29/24 11:45 Pulse Oximetry 99 08/29/24 11:45 Oxygen Delivery Method Room Air 08/29/24 11:45 Temperature 98.6 F 08/29/24 11:45 Pulse Rate 100 H 08/29/24 11:45 Respiratory Rate 20 08/29/24 11:45 Blood Pressure 143/96 H 08/29/24 11:45 Pulse Oximetry 99 08/29/24 11:45 Oxygen Delivery Method Room Air 08/29/24 11:45 Medical Decision Making MDM Narrative Medical decision making narrative: Her workup including gallbladder ultrasound is negative. I have no clinical suspicion of duodenitis or colitis. She is discharged home on Nexium and will follow-up with her doctor. Treatment diagnosis and follow-up were discussed with the patient. Differential Diagnosis Differential Diagnosis: Gallbladder disease, cholelithiasis, pancreatitis, hepatitis Lab Data Lab results reviewed: Yes I reviewed the patient's lab results Labs: Lab Results 08/29/24 Range/Units 11:55 WBC 4.6 (4.0-11.0) 10^3/uL RBC 4.53 (4.20-5.40) 10^6/uL Hgb 13.3 (12.0-16.0) g/dL Hct 40.1 (36.0-48.0) % MCV 88.5 (81.0-99.0) fL MCH 29.4 (26.7-34.0) pg MCHC 33.2 (29.9-35.2) g/dL RDW 12.9 (11.0-15.0) % Plt Count 219 (150-450) 10^3/uL MPV 10.2 (9.5-13.5) fL Neut % (Auto) 54.1 (43.0-75.0) % Lymph % (Auto) 37.4 (20.5-60.0) % Crockett % (Auto) 7.2 (1.7-12.0) % Eos % (Auto) 0.9 (0.9-7.0) % Baso % (Auto) 0.2 (0.2-2.0) % Neut # (Auto) 2.5 (1.4-6.5) 10^3/uL Lymph # (Auto) 1.7 (1.2-3.8) 10^3/uL Crockett # (Auto) 0.3 (0.3-0.8) 10^3/uL Eos # (Auto) 0.0 (0.0-0.7) 10^3/uL Baso # (Auto) 0.0 (0.0-0.1) 10^3/uL Abs Immat Gran (auto) 0.01 (0.00-0.03) 10^3/uL Imm/Tot Granulo (auto) 0.2 (0.0-0.5) % Sodium 138 (136-145) mmol/L Potassium 3.5 (3.5-5.1) mmol/L Chloride 104 (98-107) mmol/L Carbon Dioxide 27.7 (21.0-32.0) mmol/L Anion Gap 9.8 BUN 16.0 (7.0-18.0) mg/dL Creatinine 0.81 (0.55-1.02) mg/dL Est GFR ( Amer) >60 (>=60 mL/min/1.73m^2) Est GFR (Non-Af Amer) >60 (>=60 mL/min/1.73m^2) BUN/Creatinine Ratio 19.8 Glucose 112 H (74-106) mg/dL Calcium 8.8 (8.5-10.1) mg/dL Total Bilirubin 0.2 (0.2-1.0) mg/dL Direct Bilirubin 0.1 (0.0-0.2) mg/dL AST 10 L (15-37) U/L ALT 11 L (14-59) U/L Alkaline Phosphatase 113 (46-116) U/L Total Protein 7.5 (6.4-8.2) g/dL Albumin 3.6 (3.4-5.0) g/dL Globulin 3.9 g/dL Albumin/Globulin Ratio 0.9 Amylase 43 (25-115) U/L Lipase 46.0 (16.0-77.0) U/L Imaging Data Gallbladder ultrasound: Radiologist's impression: ITS Impressions Upper Quadrant Ultrasound 08/29/24 11:51 IMPRESSION: NO ACUTE RIGHT UPPER QUADRANT FINDINGS. Impression dictated by: Kasandra Tai M.D. 08/29/2024 12:36 PM Dictation Location: [place] [address] Electronically authenticated by: [id number] Y Date: 08/29/2024 12:36 Discharge Plan Discharge Chief Complaint: Abdominal Pain Clinical Impression: Epigastric abdominal pain Patient Disposition: Home, Self-Care Time of Disposition Decision: 12:46 Condition: Good Mode of Transportation: Private Vehicle Prescriptions / Home Meds: New esomeprazole magnesium [Nexium] 20 mg capsule,delayed release(DR/EC) 20 mg PO DAILY Qty: 20 0RF Print Language: Ecuadorean Instructions: Epigastric Pain (ED) Referrals: Physician,Non-Staff, MD [Physician] - 1 week
[2024-08-29 12:04] LABS: Basophils Percent Auto 0.2 % (0.2-2.0); Eosinophils Percent Auto 0.9 % (0.9-7.0); Hematocrit 40.1 % (36.0-48.0); Hemoglobin 13.3 g/dL (12.0-16.0); Immature Granulocytes Abs Auto 0.01 10^3/uL (0.00-0.03); Immature Granulocytes Pct Auto 0.2 % (0.0-0.5); Lymphocytes Absolute Auto 1.7 10^3/uL (1.2-3.8); Lymphocytes Percent Auto 37.4 % (20.5-60.0); Mean Corpuscular HGB Conc 33.2 g/dL (29.9-35.2); Mean Corpuscular Hemoglobin 29.4 pg (26.7-34.0); Mean Corpuscular Volume 88.5 fL (81.0-99.0); Mean Platelet Volume 10.2 fL (9.5-13.5); Monocytes Absolute Auto 0.3 10^3/uL (0.3-0.8); Monocytes Percent Auto 7.2 % (1.7-12.0); Neutrophils Absolute Auto 2.5 10^3/uL (1.4-6.5); Neutrophils Percent Auto 54.1 % (43.0-75.0); Platelet Count 219 10^3/uL (150-450); Red Blood Count 4.53 10^6/uL (4.20-5.40); Red Cell Distribution Width 12.9 % (11.0-15.0); White Blood Count 4.6 10^3/uL (4.0-11.0)
[2024-08-29 12:19] LABS: Alanine Aminotransferase 11 U/L (14-59); Albumin Globulin Ratio 0.9; Albumin Level 3.6 g/dL (3.4-5.0); Alkaline Phosphatase 113 U/L (46-116); Amylase 43 U/L (25-115); Anion Gap 9.8; Aspartate Amino Transferase 10 U/L (15-37); BUN Creatinine Ratio 19.8; Bilirubin Direct 0.1 mg/dL (0.0-0.2); Bilirubin Total 0.2 mg/dL (0.2-1.0); Calcium 8.8 mg/dL (8.5-10.1); Carbon Dioxide 27.7 mmol/L (21.0-32.0); Chloride 104 mmol/L (98-107); Estimated GFR (African America >60 (>=60 mL/min/1.73m^2); Estimated GFR (Non-African Ame >60 (>=60 mL/min/1.73m^2); Globulin 3.9 g/dL; Glucose 112 mg/dL (74-106); Potassium 3.5 mmol/L (3.5-5.1); Sodium 138 mmol/L (136-145); Total Protein 7.5 g/dL (6.4-8.2)
== END 2024-08-29 12:56 | disposition home or self-care (01) ==
PROVIDERS: Emergency Provider Emergency Medicine
DX: R10.13 Epigastric pain (principal)
CPT/HCPCS: 36415; 76705; 80048; 80076; 82150; 83690; 85025; 99285